=== PATIENT | male | born 2000 | race Caucasian/White ===

== ENCOUNTER 2020-08-07 15:45 | Emergency (ER) | payer OTHER ==
[2020-08-07 16:10] VITALS: BP 105/62
--- NOTE | 2020-08-07 16:44 | ER Document Report ---
ED Medical Screen (RME) - General Chief Complaint: Abdominal Pain Stated Complaint: ABDOMINAL PAIN Time Seen by Provider: 08/07/20 16:41 Mode of Arrival: Ambulatory Information source: Patient Notes: 20-year-old male presented to ED for right upper quadrant abdominal pain. He states he had the same problem about 2 weeks ago and was seen in [place] and they told him he had a hole in the gallbladder to come back if he did not get better. He states he is continued to have pain he came to this hospital instead. He did have a gallbladder ultrasound in [place]. Patient is alert oriented respirations regular nonlabored speaking in full sentences. He states he is nauseated. We will give some Zofran in the triage area and get blood urine and the ultrasound repeated. I have greeted and performed a rapid initial assessment of this patient. A comprehensive ED assessment and evaluation of the patient, analysis of test results and completion of medical decision making process will be conducted by an additional ED providers. Physical Exam - Vital signs Vitals: Temp Pulse Resp BP Pulse Ox 98.5 F 88 18 105/62 98 08/07/20 16:09 08/07/20 16:09 08/07/20 16:08/07/20 16:08/07/20 16:09 Course - Vital Signs Vital signs: Temp Pulse Resp BP Pulse Ox 98.5 F 88 18 105/62 98 08/07/20 16:09 08/07/20 16:09 08/07/20 16:09 08/07/20 16:09 08/07/20 16:09
[2020-08-07 17:17] LABS: APPEARANCE,URINE CLEAR; BILIRUBIN,URINE NEGATIVE (NEGATIVE); COLOR,URINE STRAW; GLUCOSE, URINE NEGATIVE (NEGATIVE); KETONES,URINE NEGATIVE (NEGATIVE); LEUKOCYTE ESTERASE,URINE NEGATIVE (NEGATIVE); NITRITE,URINE NEGATIVE (NEGATIVE); PROTEIN,URINE NEGATIVE (NEGATIVE); URINE SPECIFIC GRAVITY 1.005; UROBILINOGEN,URINE NEGATIVE mg/dL (<2.0)
[2020-08-07 17:24] LABS: ABSOLUTE EOSINOPHILS # (AUTO) 0.1 10^3/uL (0.0-0.6); ABSOLUTE LYMPHOCYTES (AUTO) 1.7 10^3/uL (0.5-4.7); ABSOLUTE MONOCYTES (AUTO) 0.5 10^3/uL (0.1-1.4); BASOPHILS % (AUTO) 0.8 % (0-2); HEMATOCRIT 48.5 % (37.9-51.0); HEMOGLOBIN 16.8 g/dL (13.5-17.0); LYMPHOCYTES % (AUTO) 38.7 % (13-45); MEAN CORPUSCULAR HEMOGLOBIN 31.4 pg (27.0-33.4); MEAN CORPUSCULAR HGB CONC 34.7 g/dL (32.0-36.0); MEAN CORPUSCULAR VOLUME 91 fl (80-97); MONOCYTES % (AUTO) 12.3 % (3-13); PLATELET COUNT 142 10^3/uL (150-450); RED BLOOD COUNT 5.35 10^6/uL (4.35-5.55); RED CELL DISTRIBUTION WIDTH 12.5 % (11.5-14.0); SEGMENTED NEUTROPHILS % (AUTO) 46.2 % (42-78); TOTAL CELLS COUNTED % (AUTO) 100 %; WHITE BLOOD COUNT 4.3 10^3/uL (4.0-10.5)
[2020-08-07 17:35] LABS: ALBUMIN 4.9 g/dL (3.5-5.0); ALKALINE PHOSPHATASE 73 U/L (38-126); ANION GAP 9 (5-19); ASPARTATE AMINO TRANSFERASE 27 U/L (17-59); BILIRUBIN,DIRECT 0.2 mg/dL (0.0-0.4); BILIRUBIN,TOTAL 0.8 mg/dL (0.2-1.3); BLOOD UREA NITROGEN 10 mg/dL (7-20); CARBON DIOXIDE 29 mmol/L (22-30); CHLORIDE 103 mmol/L (98-107); GLUCOSE 99 mg/dL (75-110); POTASSIUM 4.5 mmol/L (3.6-5.0)
--- NOTE | 2020-08-07 17:52 | RADIOLOGY REPORT (SQ) ---
EXAM DESCRIPTION: U/S ABDOMEN LIMITED W/O DOP IMAGES COMPLETED DATE/TIME: 08/07/2020 5:34 pm REASON FOR STUDY: ruq abdominal pain COMPARISON: None. TECHNIQUE: Dynamic and static grayscale images acquired of the abdomen and recorded on PACS. Additio nal selected color Doppler and spectral images recorded. LIMITATIONS: None. FINDINGS: PANCREAS: No masses. Visualized pancreatic duct normal caliber. LIVER: No masses. Echotexture normal. LIVER VASCULATURE: Normal directional flow of the main portal vein and hepatic veins. GALLBLADDER: No stones. Normal wall thickness. No pericholecystic fluid. ULTRASOUND-DETECTED NAVA'S SIGN: Negative. INTRAHEPATIC DUCTS AND COMMON DUCT: CBD and intrahepatic ducts normal caliber. No filling defects. INFERIOR VENA CAVA: Normal flow. AORTA: No aneurysm. RIGHT KIDNEY: Normal size. Normal echogenicity. No solid or suspicious masses. No hydronephrosis. No calcifications. PERITONEAL AND RIGHT PLEURAL SPACE: No ascites or effusions. OTHER: No other significant findings. IMPRESSION: NORMAL RIGHT UPPER QUADRANT ULTRASOUND. TECHNICAL DOCUMENTATION: JOB ID: [id number] [employer]- All Rights Reserved Reading location - IP/workstation name: [email or web address]
--- NOTE | 2020-08-07 19:02 | ER Document Report ---
ED GI/ - General Chief Complaint: Abdominal Pain Stated Complaint: ABDOMINAL PAIN Time Seen by Provider: 08/07/20 16:41 Mode of Arrival: Ambulatory - [facility] Patient complains to provider of: Abdominal pain, Diarrhea, Vomiting Onset: Other - 2 weeks Timing/Duration: Intermittent Location: RUQ Associated symptoms: Diarrhea, Nausea. denies: Chest pain, Constipation, Hematuria Exacerbated by: Food Similar symptoms previously: Yes Recently seen / treated by doctor: Yes Notes: 08/07/20 18:57 Patient is a 20-year-old male with no significant past medical history who presents with right upper quadrant abdominal pain. Patient states symptoms started 2 weeks ago. He went to [facility] and had a CT scan and ultrasound. He states that he was told that he has a "hole" in his gallbladder. He was given Zofran and another medication but he does not member the name of it. Patient was told to follow-up with surgery but he has not gone yet. He states the pain has been persistent for the past 2 weeks. It is worse with eating greasy foods. He states he has had nausea and vomiting. He is tolerating l iquids and was drinking fluids before he came into the ER. Patient states that eating greasy foods makes his pain worse. He has had some nonbloody diarrhea. No constipation. States he had a fever yesterday. He states he has not taken anything for pain or any antipyretics today. 08/07/20 21:49 Past Medical History - General Information source: Patient - Social History Smoking Status: Current Every Day Smoker Chew tobacco use (# tins/day): No Frequency of alcohol use: None Drug Abuse: None Family History: Reviewed & Not Pertinent Patient has homicidal ideation: No Review of Systems - Review of Systems Notes: CONSTITUTIONAL: No fever, fatigue or weight loss. SKIN: No rash. HENT: No congestion, ear pain, or sore throat. EYES: No recent vision problems or eye pain. ENDOCRINE: No thyroid problems. No polyuria or polydipsia. CARDIOVASCULAR: No chest pain or edema. RESPIRATORY: No cough, shortness of breath, congestion, or wheezing. GASTROINTESTINAL: Positive for abdominal pain, nausea, vomiting, and diarrhea GENITOURINARY: No dysuria. MUSCULOSKELETAL: No joint pain or swelling. LYMPHATIC: No swollen glands. NEUROLOGIC: No seizures. No headache, focal weakness or sensory changes. HEMATOLOGIC: No unusual bruising or bleeding. PSYCHIATRIC: No depression or anxiety. Physical Exam - Vital signs Vitals: Temp Pulse Resp BP Pulse Ox 98.5 F 88 18 105/62 98 08/07/20 16:09 08/07/20 16:09 08/07/20 16:09 08/07/20 16:09 08/07/20 16:09 Interpretation: Normal - Notes Notes: VITAL SIGNS: Within normal limits. GENERAL: No acute distress, non-toxic appearance. Resting comfortably. HEAD: Normal with no signs of head trauma. EYES: EOMI, conjunctiva normal, no discharge. EARS: Hearing grossly intact. NOSE: Normal. THROAT: Oropharynx is normal. NECK: Normal range of motion, no tenderness, supple, no lymphadenopathy, No adenopathy, no JVD. CHEST: Clear breath sounds bilaterally. No wheezes, rales, or rhonchi. CARDIAC: Regular rate and rhythm. S1 and S2, without murmurs, gallops, or ru bs. VASCULAR: No Edema. ABDOMEN: Normal and soft. Discomfort to palpation of right upper quadrant. No rebound or guarding. GASTROINTESTINAL: Bowel sounds normal GENITOURINARY: Normal, No tenderness LYMPATHTIC: No lymphadenopathy noted. MUSCULOSKELETAL: Good range of motion of all major joints. Extremities without clubbing, cyanosis or edema. NEUROLOGICAL: Alert and oriented x 3. No focal sensory or strength deficits. Speech normal. Follows commands appropriately. PSYCHIATRIC: Normal Affect, judgement and mood. SKIN: Normal appearance with no rashes or lesions. Course - Re-evaluation Re-evalutation: 08/07/20 19:01 Patient's gallbladder ultrasound was unremarkable. There was no gallstones or pericholecystic fluid. Patient mentions the "hole" that he was diagnosed with at [facility] on Ct scan. I did offer a CT scan as patient is still having pain and he agreed and I do not have an explanation for the "hole" that he mentions. I went to reevaluate the patient after staff told me that he would like to go home without having the CAT scan. Patient was not in the room when I went to go see him. It appears that patient had eloped from the emergency room. 08/07/20 21:49 - Vital Signs Vital signs: Temp Pulse Resp BP Pulse Ox 98.5 F 88 18 105/62 98 08/07/20 16:09 08/07/20 16:09 08/07/20 16:09 08/07/20 16:09 08/07/20 16:09 - Laboratory Result Diagrams: 08/07/20 16:58 08/07/20 16:58 Laboratory results interpreted by me: 08/07/20 08/07/20 16:58 16:58 Plt Count 142 L Urine Blood MODERATE H Discharge - Discharge Clinical Impression: Abdominal pain Qualifiers: Abdominal location: right upper quadrant Qualified Code(s): R10.11 - Right upper quadrant pain Disposition: ELOPED
== END 2020-08-07 20:05 | disposition left against medical advice (07) ==
LOC: EDSEX → ER 15:45
DX: R10.11 Right upper quadrant pain (principal); R19.7 Diarrhea, unspecified; R11.2 Nausea with vomiting, unspecified; F17.200 Nicotine dependence, unspecified, uncomplicated
CPT/HCPCS: 36415; 76705; 80053; 81001; 83690; 85025; 99281